=== PATIENT | female | born 1975 | race Caucasian/White ===

== ENCOUNTER → 2016-06-13 | Outpatient (CLI) | payer OTHER ==
--- NOTE | 2016-06-13 08:56 | KCIC ---
PROCEDURE Limited abdomen ultrasound HISTORY Right upper quadrant pain, nausea vomiting and diarrhea COMPARISON None FINDINGS Multiple sonographic images of the abdomen are submitted. There is no abnormality of the visualized pancreas. No free fluid is demonstrated. There is mild coarsening of the echotexture of the liver. Right lobe of the liver measured 17.5 centimeters longitudinal. Common bile duct is borderline 0.6 centimeters. Gallbladder is present without significant intraluminal abnormality although technologist reports a positive sonographic Santacruz sign. Gallbladder wall is slightly prominent at 0.4 centimeters. There is no significant pericholecystic fluid. Right kidney measured 10.3 x 4.5 x 4.5 centimeters, no hydronephrosis. There is segmental visualization of the inferior vena cava. IMPRESSION 1. There is no significant intraluminal abnormality of the gallbladder although nonspecific mild prominence of the gallbladder wall and nonspecific positive sonographic Santacruz's sign. Findings could be seen with acalculous cholecystitis in the appropriate clinical setting. 2. There is mild coarsening of the echotexture of the liver, likely due to mild steatosis. Electronically signed by: Kolby Dunn MD (Jun 13, 2016 08:55:25)
== END | disposition home or self-care (01) ==
LOC: KCIC US 07:39
PROVIDERS: ATTEND Family Medicine
DX: R10.11 Right upper quadrant pain (principal); R11.2 Nausea with vomiting, unspecified; R19.7 Diarrhea, unspecified
CPT/HCPCS: 76705